=== PATIENT | female | born 1950 | race Caucasian/White ===

== ENCOUNTER 2017-01-21 18:55 | Observation (INO) | payer OTHER ==
[2017-01-21 18:59] VITALS: BMI 27.4
[2017-01-21] MEDS ORDERED: Aspirin 325 mg EC Tablets PO STA (19:56)
--- NOTE | 2017-01-21 19:56 | C.PDOC ---
History Of Present Illness Patient presents to the ED with complaints of chest pain beginning today at approximately lunch time. Patient states pain is non-radiating and denies fever , chills, shortness of breath, weakness, or numbness. Time Seen by Provider: 01/21/17 19:55 Chief Complaint (Nursing): Chest Pain History Per: Patient History/Exam Limitations: no limitations Onset/Duration Of Symptoms: Hrs Current Symptoms Are (Timing): Still Present Severity: Moderate Pain Scale Rating Of: 4 Quality: "Pain" (chest discomfort ) Associated Symptoms: denies: Nausea, Dyspnea, Diaphoresis, Syncope Modifying Factors: None Exacerbating Factors: None Alleviating Factors: None Recent travel outside of the [place]: No Additional History Per: Prior Records Past Medical History Reviewed: Historical Data, Nursing Documentation, Vital Signs Vital Signs: Last Vital Signs Temp 98.7 F 01/21/17 19:30 Pulse 71 01/21/17 19:30 Resp 18 01/21/17 19:30 BP 111/70 01/21/17 19:30 Pulse Ox 99 01/21/17 20:19 - Medical History PMH: Arthritis, HTN, Hypothyroidism, Kidney Stones Family History: States: Unknown Family Hx - Social History Hx Alcohol Use: No Hx Substance Use: No - Immunization History Hx Tetanus Toxoid Vaccination: Yes Hx Influenza Vaccination: Yes Hx Pneumococcal Vaccination: Yes Review Of Systems Constitutional: Negative for: Fever, Chills ENT: Negative for: Throat Pain Cardiovascular: Positive for: Chest Pain Respiratory: Negative for: Cough, Shortness of Breath Gastrointestinal: Negative for: Nausea, Vomiting Genitourinary: Negative for: Dysuria Musculoskeletal: Negative for: Back Pain Skin: Negative for: Rash Neurological: Negative for: Weakness, Numbness Psych: Negative for: Anxiety Physical Exam - Physical Exam Appears: Non-toxic, No Acute Distress Skin: Warm, Diaphoretic Head: Normacephalic Eye(s): bilateral: Normal Inspection, PERRL, EOMI Oral Mucosa: Moist Neck: Trachea Midline, Supple Chest: Symmetrical, No Deformity, Other (non-reproducable chest discomfort ) Cardiovascular: Rhythm Regular Respiratory: No Rales, No Rhonchi, No Wheezing Gastrointestinal/Abdominal: Soft, No Tenderness, No Distention, No Guarding, No Rebound Back: No CVA Tenderness Extremity: No Tenderness Extremity: Bilateral: Atraumatic, Normal Color And Temperature, Normal ROM Pulses: Left Dorsalis Pedis: Normal, Right Dorsalis Pedis: Normal Neurological/Psych: Oriented x3, Normal Speech, Normal Cognition Gait: Steady ED Course And Treatment - Laboratory Results Result Diagrams: 01/21/17 20:01 01/21/17 20:01 ECG: Interpreted By Me, Viewed By Me ECG Rhythm: Sinus Rhythm (90), Nonspecific Changes O2 Sat by Pulse Oximetry: 99 (room air ) Pulse Ox Interpretation: Normal - Radiology CXR: Interpreted by Me, Viewed By Me CXR Interpretation: No: Infiltrates, Fracture, Pnemothorax Disposition Discussed With DrAnthony: Nasir Rosas Comment: accepted the pt on his service and took over the care at 10:31 PM Doctor Will See Patient In The: ED Counseled Patient/Family Regarding: Studies Performed, Diagnosis - Disposition Disposition: HOSPITALIZED Disposition Time: 19:56 Condition: FAIR Forms: [facility] (Ivorian) - POA Present On Arrival: Poor Glycemic Control - Clinical Impression Clinical Impression: Chest pain - Scribe Statement The provider has reviewed the documentation as recorded by the Scribe Alecia Valenzuela All medical record entries made by the Scribe were at my direction and personally dictated by me. I have reviewed the chart and agree that the record accurately reflects my personal performance of the history, physical exam, medical decision making, and the department course for this patient. I have also personally directed, reviewed, and agree with the discharge instructions and disposition. Decision To Admit - Pt Status Changed To: Hospital Disposition Of: Observation - . Bed Request Type: Telemetry Patient Diagnosis: Chest pain, Hyperglycemia
[2017-01-21] MEDS ORDERED: Aspirin 325 mg EC Tablets PO ONE (20:02)
[2017-01-21 20:08] LABS: BASO # 0.1 K/uL (0.0-0.2); BASO % 2.7 % (0.0-2.0); EOS # 0.3 K/uL (0.0-0.7); EOS % 5.1 % (0.0-4.0); HEMATOCRIT 35.1 % (34.0-47.0); LYMPH # 1.2 K/uL (1.0-4.3); MEAN CELL VOLUME 92.1 fL (81.0-99.0); MEAN CORPUSCULAR HEMOGLOBIN 30.8 pg (27.0-31.0); MEAN CORPUSCULAR HGB CONC 33.4 g/dL (33.0-37.0); MEAN PLATELET VOLUME 8.5 fL (7.2-11.7); MONO # 0.4 K/uL (0.0-0.8); MONO % 6.8 % (0.0-10.0); NRBC % 0.2 % (0.0-2.0); WHITE BLOOD COUNT 5.4 K/uL (4.8-10.8)
[2017-01-21 20:18] LABS: CHLORIDE 100 mmol/L (98-107); INR 0.9; POTASSIUM 4.3 mmol/L (3.6-5.2); SODIUM 137 mmol/L (132-148)
[2017-01-21 20:20] LABS: AST/SGOT 24 U/L (14-36); BILIRUBIN,TOTAL 0.5 mg/dL (0.2-1.3); CARBON DIOXIDE 25 mmol/L (22-30); GFR AFRICAN-AMERICAN > 60
[2017-01-21 20:21] LABS: ALB/GLOB RATIO 1.1 (1.0-2.1); ALKALINE PHOSPHATASE 90 U/L (38-126); ALT/SGPT 33 U/L (9-52); BLOOD UREA NITROGEN 14 mg/dL (7-17); CALCIUM 9.9 mg/dl (8.6-10.4); GLUCOSE,RANDOM 222 mg/dL (65-105); TOTAL PROTEIN 7.9 g/dL (6.3-8.3)
[2017-01-21 20:25] LABS: RBC URINE < 1 /hpf (0-3); URINE BILIRUBIN NEGATIVE (NEGATIVE); URINE BLOOD NEGATIVE (NEGATIVE); URINE COLOR Straw (YELLOW); URINE GLUCOSE (UA) 2+ mg/dL (Normal); URINE KETONE NEGATIVE (NEGATIVE); URINE LEUKOCYTE ESTERASE NEG Leu/uL (Negative); URINE PROTEIN NEGATIVE (NEGATIVE); URINE UROBILINOGEN NORMAL mg/dL (0.2-1.0); WBC URINE 2 /hpf (0-5)
[2017-01-21] MEDS ORDERED: Aluminum Hydroxide/Magnesium Hydroxide Susp (30 mL) PO PRN (23:06)
--- NOTE | 2017-01-21 23:18 | CP.PCM.HP ---
<Ashvin GLASGOWMary Ann - Last Filed: 01/21/17 23:37> History of Present Illness - History of Present Illness History of Present Illness: CC: "I have chest pain" Patient is a 66 year old female with PMHx significant for HTN, GERD, and anxiety who presents to the ED with complaint of chest pain. Patient states this pain began while eating lunch today. Patient states she was eating chicken and rice and felt pain with swallowing and pain in epigastric region. Patient states it is difficult to describe the pain but feels like she "has a lot of air inside." Patient states she rushed to eat her food because she was feeling anxious and does not like to take her xanax on an empty stomach. Patient states she took her xanax and it did help her feel better. Patient also complains of frequent belching which she says reproduces the pain. Patient also complains of of left sided chest pain that she describes as a muscle pain which she has felt for the pats 1-2 months and is helped with her salonpas patches. Patient denies chest pressure, nausea, or vomiting. Patient denies diaphoresis, lightheadedness. Patient complains of some dizziness but she states it is because she needs a new eyeglass prescription. Patient also complains of back pain and left shoulder pain but states it is also chronic for 1-2 months and denies relation to the pain that brought her to the ER. Patient states she was concerned about the pain as she has a history of HTN that is controlled with multiple medications. Patient states she checks her blood pressure twice a day at home and takes norvasc 5mg up to twice daily if her pressure is elevated. PMD: Dr. Bel Navarrete PMHx: gastritis (recently finished 1 month nexium), HTN, arthritis, anxiety Meds (verified pill bottles): xanax 0.25mg BID prn, simvastatin 20mg, levothyroxine 100mcg daily, metoprolol succinate 50mg BID, norvasc 5mg BID prn, losartan 100mg PSHx: thyroidectomy, x 2 FamHx: sister with CVA in her 60s Social: lives with sister, denies alcohol, tobacco, drugs Present on Admission - Present on Admission Any Indicators Present on Admission: No Review of Systems - Constitutional Constitutional: absent: Chills, Fever, Weakness - EENT Eyes: Blurred Vision, Requires Corrective Lenses - Cardiovascular Cardiovascular: Chest Pain. absent: Diaphoresis, Dyspnea, Pain Radiating to Arm /Neck/Jaw, Leg Edema, Lightheadedness, Radiating Pain - Respiratory Respiratory: absent: Cough, Dyspnea - Gastrointestinal Gastrointestinal: Belching, Bloating, Dyspepsia. absent: Nausea, Vomiting - Genitourinary Genitourinary: absent: Difficulty Urinating, Dysuria - Musculoskeletal Musculoskeletal: Back Pain - Integumentary Integumentary: absent: Rash, Swelling - Neurological Neurological: absent: Burning Sensations, Confusion, Dizziness, Focal Weakness - Psychiatric Psychiatric: Anxiety Past Patient History - Infectious Disease Hx of Infectious Diseases: None - Past Social History Smoking Status: Never Smoked - CARDIAC Hx Hypertension: Yes - RENAL Hx Kidney Stones: Yes - ENDOCRINE/METABOLIC Hx Hypothyroidism: Yes - MUSCULOSKELETAL/RHEUMATOLOGICAL Hx Arthritis: Yes - PSYCHIATRIC Hx Substance Use: No - SURGICAL HISTORY Other/Comment: c/s - ANESTHESIA Hx Anesthesia: Yes Meds Allergies/Adverse Reactions: Allergies Allergy/AdvReac Type Severity Reaction Status Date / Time No Known Allergies Allergy Verified 01/21/17 18:59 Physical Exam - Constitutional Appears: Non-toxic, No Acute Distress - Head Exam Head Exam: ATRAUMATIC, NORMOCEPHALIC - Eye Exam Eye Exam: EOMI - ENT Exam ENT Exam: Mucous Membranes Moist - Respiratory Exam Respiratory Exam: Clear to Auscultation Bilateral, NORMAL BREATHING PATTERN. absent: Rales, Rhonchi, Wheezes, Respiratory Distress - Cardiovascular Exam Cardiovascular Exam: REGULAR RHYTHM, +S1, +S2. absent: JVD Additional comments: left chest salonpas patch chest pain non-reproducible - GI/Abdominal Exam GI & Abdominal Exam: Normal Bowel Sounds, Soft, Tenderness (epigastric). absent : Firm, Guarding, Rebound, Rigid - Extremities Exam Extremities exam: Positive for: normal inspection. Negative for: pedal edema - Neurological Exam Neurological exam: Alert, Oriented x3 - Psychiatric Exam Psychiatric exam: Normal Affect - Skin Skin Exam: Dry, Warm Results - Vital Signs Recent Vital Signs: Last Vital Signs Temp 98.7 F 01/21/17 19:30 Pulse 71 01/21/17 19:30 Resp 18 01/21/17 19:30 BP 111/70 01/21/17 19:30 Pulse Ox 99 01/21/17 22:33 - Labs Result Diagrams: 01/21/17 20:01 01/21/17 20:01 Labs: Laboratory Results - last 24 hr 01/21/17 01/21/17 01/21/17 20:01 20:01 20:01 WBC 5.4 RBC 3.81 Hgb 11.7 D Hct 35.1 MCV 92.1 MCH 30.8 MCHC 33.4 RDW 13.0 Plt Count 190 MPV 8.5 Neut % (Auto) 62.4 Lymph % (Auto) 23.0 [place] % (Auto) 6.8 Eos % (Auto) 5.1 H Baso % (Auto) 2.7 H Neut # 3.4 Lymph # 1.2 [place] # 0.4 Eos # 0.3 Baso # 0.1 PT 10.2 INR 0.9 APTT 35 H Sodium 137 Potassium 4.3 Chloride 100 Carbon Dioxide 25 Anion Gap 17 BUN 14 Creatinine 0.8 Est GFR ( Amer) > 60 Est GFR (Non-Af Amer) > 60 Random Glucose 222 H Calcium 9.9 Total Bilirubin 0.5 AST 24 ALT 33 Alkaline Phosphatase 90 Troponin I < 0.0120 NT-Pro-B Natriuret Pep 175 Total Protein 7.9 Albumin 4.2 Globulin 3.7 Albumin/Globulin Ratio 1.1 Urine Color Urine Clarity Urine pH Ur Specific [place] Urine Protein Urine Glucose (UA) Urine Ketones Urine Blood Urine Nitrate Urine Bilirubin Urine Urobilinogen Ur Leukocyte Esterase Urine WBC (Auto) Urine RBC (Auto) Ur Squamous Epith Cells 01/21/17 20:19 WBC RBC Hgb Hct MCV MCH MCHC RDW Plt Count MPV Neut % (Auto) Lymph % (Auto) [place] % (Auto) Eos % (Auto) Baso % (Auto) Neut # Lymph # [place] # Eos # Baso # PT INR APTT Sodium Potassium Chloride Carbon Dioxide Anion Gap BUN Creatinine Est GFR ( Amer) Est GFR (Non-Af Amer) Random Glucose Calcium Total Bilirubin AST ALT Alkaline Phosphatase Troponin I NT-Pro-B Natriuret Pep Total Protein Albumin Globulin Albumin/Globulin Ratio Urine Color Straw Urine Clarity Clear Urine pH 5.0 Ur Specific [place] 1.010 Urine Protein Negative Urine Glucose (UA) 2+ H Urine Ketones Negative Urine Blood Negative Urine Nitrate Negative Urine Bilirubin Negative Urine Urobilinogen Normal Ur Leukocyte Esterase Neg Urine WBC (Auto) 2 Urine RBC (Auto) < 1 Ur Squamous Epith Cells < 1 Assessment & Plan - Assessment and Plan (Free Text) Assessment: Chest pain R/O ACS monitor on tele first JYOTI negative, will continue to trend will check repeat EKG chest xray without infiltrates, official report pending pain is localized to epigastric region, will also treat for gastritis Gastric Reflux patient with history reflux, completed one month nexium will start protonix and maalox will check h. pylori Elevated Blood Glucose patient denies history diabetes 2+ glucose in urine also noted will check Hgb A1c HTN continue home meds: losartan 100mg daily, metoprolol succinate 50mg BID will add norvasc 5mg if needed- patient takes for SBP 190 or higher HLD continue equivalent crestor 5mg for home med simvastatin 20mg Hypothyroidism continue home medication levothyroxine 100mcg daily will check thyroid studies Anxiety continue home med xanax 0.25mg BID prn Prophylactic measure protonix lovenox Plan D/W Dr. Rosas <Nasir Rosas - Last Filed: 01/22/17 06:17> Results - Vital Signs Recent Vital Signs: Last Vital Signs Temp 98 F 01/22/17 01:44 Pulse 73 01/22/17 06:00 Resp 18 01/22/17 06:00 BP 123/73 01/22/17 06:00 Pulse Ox 98 01/22/17 06:00 - Labs Result Diagrams: 01/21/17 20:01 01/21/17 20:01 Labs: Laboratory Results - last 24 hr 01/22/17 01:50 Total Creatine Kinase 56 CK-MB (Mass) 0.30 Troponin I, Quant < 0.0120 Assessment & Plan - Date & Time Date: 01/22/17 (I have seen and examined the patient. I agree with the findings and plan of care as documented by Dr. Lock. Patient with chest pain. History of hypertension and hypothyroidism. Continue home meds. Aspirin and Statin. ROMIx3 with EKG. Also with elevated blood sugar. Check hemoglobin A1C. Monitor for acute changes.) Time: 06:16 Attending/Attestation - Attestation I have personally seen and examined this patient.: Yes I have fully participated in the care of the patient.: Yes I have reviewed all pertinent clinical information: Yes
[2017-01-21] MEDS: Metoprolol Succinate 50 mg XL Tab PO SCH (23:19)
[2017-01-21] MEDS ORDERED: Enoxaparin 40 mg Syringe SC SCH (23:30)
[2017-01-21] MEDS: Pantoprazole 40 mg EC Tab PO SCH (23:49)
[2017-01-21] MEDS ORDERED: Pantoprazole 40 mg EC Tab PO ONE (23:52)
[2017-01-21] MEDS ORDERED: Enoxaparin 40 mg Syringe ONE (23:53)
[2017-01-22 05:12] VITALS: RESP 18
[2017-01-22] MEDS ORDERED: Levothyroxine 100 MCG TAB PO SCH (06:30)
[2017-01-22 07:29] VITALS: O2SAT 96
--- NOTE | 2017-01-22 08:07 | RAD ---
PROCEDURE: CHEST RADIOGRAPH, 1 VIEW HISTORY: Chest pain COMPARISON: None available. FINDINGS: LUNGS: The lungs are well inflated and clear. PLEURA: No pneumothorax or pleural fluid seen. CARDIOVASCULAR: Normal. OSSEOUS STRUCTURES: No significant abnormalities. VISUALIZED UPPER ABDOMEN: Normal. OTHER FINDINGS: None. IMPRESSION: No active pulmonary disease.
[2017-01-22 09:34] LABS: BASO # 0.1 K/uL (0.0-0.2); BASO % 1.3 % (0.0-2.0); EOS # 0.3 K/uL (0.0-0.7); EOS % 5.4 % (0.0-4.0); HEMATOCRIT 37.5 % (34.0-47.0); LYMPH # 1.4 K/uL (1.0-4.3); MEAN CELL VOLUME 92.3 fL (81.0-99.0); MEAN CORPUSCULAR HEMOGLOBIN 30.3 pg (27.0-31.0); MEAN CORPUSCULAR HGB CONC 32.9 g/dL (33.0-37.0); MONO # 0.3 K/uL (0.0-0.8); MONO % 5.8 % (0.0-10.0); RED CELL DISTRIBUTION WIDTH 13.1 % (11.5-14.5); WHITE BLOOD COUNT 5.1 K/uL (4.8-10.8)
[2017-01-22 09:45] LABS: CHLORIDE 100 mmol/L (98-107); SODIUM 138 mmol/L (132-148)
[2017-01-22 09:46] LABS: POTASSIUM 4.4 mmol/L (3.6-5.2)
[2017-01-22 09:48] LABS: ALB/GLOB RATIO 1.1 (1.0-2.1); ALKALINE PHOSPHATASE 79 U/L (38-126); ALT/SGPT 33 U/L (9-52); AST/SGOT 27 U/L (14-36); BILIRUBIN,TOTAL 0.7 mg/dL (0.2-1.3); BLOOD UREA NITROGEN 14 mg/dL (7-17); CALCIUM 10.3 mg/dl (8.6-10.4); CARBON DIOXIDE 28 mmol/L (22-30); GFR AFRICAN-AMERICAN > 60; GLUCOSE,RANDOM 139 mg/dL (65-105); TOTAL PROTEIN 8.3 g/dL (6.3-8.3)
[2017-01-22 10:00] LABS: T4 9.29 ug/dL (5.5-11.0)
[2017-01-22] MEDS: Pantoprazole 40 mg EC Tab PO SCH (10:02)
[2017-01-22] MEDS: Metoprolol Succinate 50 mg XL Tab PO SCH (10:02)
[2017-01-22 10:14] LABS: THYROID STIMULATING HORMONE 0.68 mIU/L (0.46-4.68)
[2017-01-22 10:18] VITALS: BP 154/81; TEMP 97.9
--- NOTE | 2017-01-22 12:01 | CP.PCM.PN ---
Objective - Vital Signs/Intake and Output Vital Signs (last 24 hours): Temp Pulse Resp BP Pulse Ox 97.9 F 82 18 154/81 H 96 01/22/17 10:17 01/22/17 10:17 01/22/17 10:17 01/22/17 10:17 01/22/17 10:17 - Medications Medications: Current Medications Al Hydrox/Mg Hydrox/Simethicone (Maalox 30 Ml) 30 ml PO Q6H PRN PRN Reason: Indigestion / Heartburn Alprazolam (Xanax) 0.25 mg PO PRN PRN PRN Reason: Anxiety Stop: 01/28/17 23:08 Aspirin (Aspirin Chewable) 81 mg PO DAILY [facility] Last Admin: 01/22/17 10:02 Dose: 81 mg Enoxaparin Sodium (Lovenox) 40 mg SC Q24H [facility] Last Admin: 01/21/17 23:54 Dose: 40 mg Levothyroxine Sodium (Synthroid) 100 mcg PO DAILY@0630 [facility] Last Admin: 01/22/17 06:04 Dose: 100 mcg Losartan Potassium (Cozaar) 100 mg PO DAILY [facility] Last Admin: 01/22/17 10:02 Dose: 100 mg Metoprolol Succinate (Toprol Xl) 50 mg PO BID [facility] Last Admin: 01/22/17 10:02 Dose: 50 mg Pantoprazole Sodium (Protonix Ec Tab) 40 mg PO DAILY [facility] Last Admin: 01/22/17 10:02 Dose: 40 mg Pneumococcal Polyvalent Vaccine (Pneumovax 23 Vaccine) 0.5 ml IM .ONCE ONE Stop: 01/25/17 14:01 Rosuvastatin Calcium (Crestor) 5 mg PO HS [facility] - Labs Labs: 01/22/17 09:23 01/22/17 09:23 PT 10.2 SECONDS (9.7-12.2) 01/21/17 20:01 INR 0.9 01/21/17 20:01 APTT 35 SECONDS (21-34) H 01/21/17 20:01
[2017-01-22] MEDS ORDERED: Pneumococcal 23-Valent Vaccine IM ONE (13:10)
[2017-01-22 13:11] VITALS: PULSE 88
--- NOTE | 2017-01-22 13:49 | CP.PCM.DIS ---
<Cachorro Fernando - Last Filed: 01/23/17 01:17> Provider - Provider Date of Admission: 01/21/17 22:30 Attending physician: Nasir Rosas MD Primary care physician: PMD: Dr. Centeno Time Spent in preparation of Discharge (in minutes): 40 Diagnosis - Discharge Diagnosis (1) Chest pain Status: Resolved (2) GERD (gastroesophageal reflux disease) Status: Chronic (3) HTN (hypertension) Status: Chronic (4) HLD (hyperlipidemia) Status: Chronic (5) Hypothyroidism Status: Chronic (6) Anxiety Status: Chronic (7) Hyperglycemia Status: Chronic Hospital Course - Lab Results Lab Results: Most Recent Lab Values WBC 5.1 K/uL (4.8-10.8) 01/22/17 09:23 RBC 4.06 Mil/uL (3.80-5.20) 01/22/17 09:23 Hgb 12.3 g/dL (11.0-16.0) 01/22/17 09:23 Hct 37.5 % (34.0-47.0) 01/22/17 09:23 MCV 92.3 fL (81.0-99.0) 01/22/17 09:23 MCH 30.3 pg (27.0-31.0) 01/22/17 09:23 MCHC 32.9 g/dL (33.0-37.0) L 01/22/17 09:23 RDW 13.1 % (11.5-14.5) 01/22/17 09:23 Plt Count 207 K/uL (130-400) 01/22/17 09:23 MPV 8.0 fL (7.2-11.7) 01/22/17 09:23 Neut % (Auto) 59.5 % (50.0-75.0) 01/22/17 09:23 Lymph % (Auto) 28.0 % (20.0-40.0) 01/22/17 09:23 Humphreys % (Auto) 5.8 % (0.0-10.0) 01/22/17 09:23 Eos % (Auto) 5.4 % (0.0-4.0) H 01/22/17 09:23 Baso % (Auto) 1.3 % (0.0-2.0) 01/22/17 09:23 Neut # 3.0 K/uL (1.8-7.0) 01/22/17 09:23 Lymph # 1.4 K/uL (1.0-4.3) 01/22/17 09:23 Humphreys # 0.3 K/uL (0.0-0.8) 01/22/17 09:23 Eos # 0.3 K/uL (0.0-0.7) 01/22/17 09:23 Baso # 0.1 K/uL (0.0-0.2) 01/22/17 09:23 PT 10.2 SECONDS (9.7-12.2) 01/21/17 20:01 INR 0.9 01/21/17 20:01 APTT 35 SECONDS (21-34) H 01/21/17 20:01 Sodium 138 mmol/L (132-148) 01/22/17 09:23 Potassium 4.4 mmol/L (3.6-5.2) 01/22/17 09:23 Chloride 100 mmol/L (98-107) 01/22/17 09:23 Carbon Dioxide 28 mmol/L (22-30) 01/22/17 09:23 Anion Gap 15 (10-20) 01/22/17 09:23 BUN 14 mg/dL (7-17) 01/22/17 09:23 Creatinine 0.8 MG/DL (0.7-1.2) 01/22/17 09:23 Est GFR ( Amer) > 60 01/22/17 09:23 Est GFR (Non-Af Amer) > 60 01/22/17 09:23 Random Glucose 139 mg/dL (65-105) H 01/22/17 09:23 Hemoglobin A1c 6.3 % (4.2-6.5) 01/22/17 09:23 Calcium 10.3 mg/dl (8.6-10.4) 01/22/17 09:23 Total Bilirubin 0.7 mg/dL (0.2-1.3) 01/22/17 09:23 AST 27 U/L (14-36) 01/22/17 09:23 ALT 33 U/L (9-52) 01/22/17 09:23 Alkaline Phosphatase 79 U/L (38-126) 01/22/17 09:23 Total Creatine Kinase 81 U/L (30-135) 01/22/17 09:23 CK-MB (Mass) 0.55 ng/mL (0.0-3.38) 01/22/17 09:23 Troponin I < 0.0120 ng/mL (0.00-0.120) 01/21/17 20:01 Troponin I, Quant < 0.0120 ng/mL (0.00-0.120) 01/22/17 09:23 NT-Pro-B Natriuret Pep 175 pg/mL (0-900) 01/21/17 20:01 Total Protein 8.3 g/dL (6.3-8.3) 01/22/17 09:23 Albumin 4.3 g/dL (3.5-5.0) 01/22/17 09:23 Globulin 4.0 gm/dL (2.2-3.9) H 01/22/17 09:23 Albumin/Globulin Ratio 1.1 (1.0-2.1) 01/22/17 09:23 Thyroxine (T4) 9.29 ug/dL (5.5-11.0) 01/22/17 09:23 TSH 3rd Generation 0.68 mIU/L (0.46-4.68) 01/22/17 09:23 Urine Color Straw (YELLOW) 01/21/17 20:19 Urine Clarity Clear (Clear) 01/21/17 20:19 Urine pH 5.0 (5.0-8.0) 01/21/17 20:19 Ur Specific Lorton 1.010 (1.003-1.030) 01/21/17 20:19 Urine Protein Negative mg/dL (NEGATIVE) 01/21/17 20:19 Urine Glucose (UA) 2+ mg/dL (Normal) H 01/21/17 20:19 Urine Ketones Negative mg/dL (NEGATIVE) 01/21/17 20:19 Urine Blood Negative (NEGATIVE) 01/21/17 20:19 Urine Nitrate Negative (NEGATIVE) 01/21/17 20:19 Urine Bilirubin Negative (NEGATIVE) 01/21/17 20:19 Urine Urobilinogen Normal mg/dL (0.2-1.0) 01/21/17 20:19 Ur Leukocyte Esterase Neg Pinky/uL (Negative) 08/17/17 20:19 Urine WBC (Auto) 2 /hpf (0-5) 01/21/17 20:19 Urine RBC (Auto) < 1 /hpf (0-3) 01/21/17 20:19 Ur Squamous Epith Cells < 1 /hpf (0-5) 01/21/17 20:19 - Hospital Course Hospital Course: 66 year old Lonnie female with past medical history significant for HTN, GERD, and anxiety presents to [facility] ED with complaint of chest pain. Patient states this pain began while eating lunch today. Patient states she was eating chicken and rice and felt pain with swallowing and pain in epigastric region. Patient states it is difficult to describe the pain but feels like she "has a lot of air inside." The pain lasted more than 6 hours, which prompted patient to come to the ED to be evaluated. Patient states she rushed to eat her food because she was feeling anxious and does not like to take her xanax on an empty stomach. Patient states she took her xanax and it did help her feel better. Patient also complains of frequent belching which she says reproduces the pain. Patient also complains of of left sided chest pain that she describes as a muscle pain which she has felt for the pats 1-2 months and is helped with her salonpas patches. Patient states she never had a endoscopy nor colonoscopy done in the past because she does not have insurance. Patient denies chest pressure, nausea, or vomiting. Patient denies diaphoresis , lightheadedness. Patient states she was concerned about the pain as she has a history of HTN that is controlled with multiple medications. Patient states she checks her blood pressure twice a day at home and takes norvasc 5mg up to twice daily if her pressure is elevated. In the ED, patient's EKG showed NSR at 90 bpm and CXR showed no active disease. During her hospital course, patient had three negative troponins. Patient's chest pain resolved next morning. Case was discussed with hospitalist attending and PMD Dr. Navarrete. Patient's presenting symptoms are most likely caused by her anxiety and GERD. Patient was recommended to have an outpatient endoscopy and colonoscopy. Patient will be discharged home with oral Protonix 40mg daily. Above is a summary of patient's hospital course. For detail, please refer to medical records. Treatment plan and discharge instruction were discussed with patient extensively. Patient was given opportunity to ask questions. Patient understood and agreed with treatment plan. Patient is medically stable to be discharge per attending Dr. Pereira. - Date & Time of H&P Date of H&P: 01/21/17 Time of H&P: 23:11 Discharge Exam - Head Exam Head Exam: ATRAUMATIC, NORMOCEPHALIC - Eye Exam Eye Exam: Normal appearance - ENT Exam ENT Exam: Mucous Membranes Moist - Neck Exam Neck exam: Normal Inspection - Respiratory Exam Respiratory Exam: Clear to PA & Lateral, NORMAL BREATHING PATTERN. absent: Respiratory Distress - Cardiovascular Exam Cardiovascular Exam: REGULAR RHYTHM, +S1, +S2 - GI/Abdominal Exam GI & Abdominal Exam: Normal Bowel Sounds, Soft - Extremities Exam Extremities exam: normal capillary refill, normal inspection, pedal pulses present - Neurological Exam Neurological exam: Alert, Oriented x3 - Psychiatric Exam Psychiatric exam: Normal Affect, Normal Mood - Skin Skin Exam: Dry, Normal Color, Warm Discharge Plan - Discharge Medications Prescriptions: Pantoprazole Sodium [Protonix] 40 mg PO DAILY #30 ect - Follow Up Plan Condition: FAIR Disposition: HOME/ ROUTINE Instructions: Pantoprazole (By mouth), Chest Pain (DC), Gastroesophageal Reflux Disease (DC) Additional Instructions: Patient is medically stable to be discharged per attending hospitalist Dr. Pereira Patient will follow up with PMD Dr. Centeno within 1 week of hospital discharge Patient will start to take protonix PO as instructed Patient was instructed to get an outpatient endoscopy and colonscopy as she never had one done Patient was educated on anxiety and stress reducing lifestyle modifications such as exercise daily Go to the nearest ED if symptoms return or worsen Referrals: Bel Navarrete MD [Medical Doctor] - <Shiv Pereira - Last Filed: 01/23/17 16:16> Provider - Provider Date of Admission: 01/21/17 22:30 Attending physician: Nasir Rosas MD Hospital Course - Lab Results Lab Results: Most Recent Lab Values WBC 5.1 K/uL (4.8-10.8) 01/22/17 09:23 RBC 4.06 Mil/uL (3.80-5.20) 01/22/17 09:23 Hgb 12.3 g/dL (11.0-16.0) 01/22/17 09:23 Hct 37.5 % (34.0-47.0) 01/22/17 09:23 MCV 92.3 fL (81.0-99.0) 01/22/17 09:23 MCH 30.3 pg (27.0-31.0) 01/22/17 09: MCHC 32.9 g/dL (33.0-37.0) L 01/22/17 09: RDW 13.1 % (11.5-14.5) 01/22/17 09: Plt Count 207 K/uL (130-400) 01/22/17 09:23 MPV 8.0 fL (7.2-11.7) 01/22/17 09:23 Neut % (Auto) 59.5 % (50.0-75.0) 01/22/17 09: Lymph % (Auto) 28.0 % (20.0-40.0) 01/22/17 09:23 Humphreys % (Auto) 5.8 % (0.0-10.0) 01/22/17 09: Eos % (Auto) 5.4 % (0.0-4.0) H 01/22/17 09:23 Baso % (Auto) 1.3 % (0.0-2.0) 01/22/17 09:23 Neut # 3.0 K/uL (1.8-7.0) 01/22/17 09:23 Lymph # 1.4 K/uL (1.0-4.3) 01/22/17 09:23 Humphreys # 0.3 K/uL (0.0-0.8) 01/22/17 09:23 Eos # 0.3 K/uL (0.0-0.7) 01/22/17 09:23 Baso # 0.1 K/uL (0.0-0.2) 01/22/17 09:23 PT 10.2 SECONDS (9.7-12.2) 01/21/17 20:01 INR 0.9 01/21/17 20:01 APTT 35 SECONDS (21-34) H 01/21/17 20:01 Sodium 138 mmol/L (132-148) 01/22/17 09:23 Potassium 4.4 mmol/L (3.6-5.2) 01/22/17 09:23 Chloride 100 mmol/L (98-107) 01/22/17 09:23 Carbon Dioxide 28 mmol/L (22-30) 01/22/17 09:23 Anion Gap 15 (10-20) 01/22/17 09:23 BUN 14 mg/dL (7-17) 01/22/17 09:23 Creatinine 0.8 MG/DL (0.7-1.2) 01/22/17 09:23 Est GFR ( Amer) > 60 01/22/17 09:23 Est GFR (Non-Af Amer) > 60 01/22/17 09:23 Random Glucose 139 mg/dL (65-105) H 01/22/17 09:23 Hemoglobin A1c 6.3 % (4.2-6.5) 01/22/17 09:23 Calcium 10.3 mg/dl (8.6-10.4) 01/22/17 09:23 Total Bilirubin 0.7 mg/dL (0.2-1.3) 01/22/17 09:23 AST 27 U/L (14-36) 01/22/17 09:23 ALT 33 U/L (9-52) 01/22/17 09:23 Alkaline Phosphatase 79 U/L (38-126) 01/22/17 09:23 Total Creatine Kinase 81 U/L (30-135) 01/22/17 09:23 CK-MB (Mass) 0.55 ng/mL (0.0-3.38) 01/22/17 09:23 Troponin I < 0.0120 ng/mL (0.00-0.120) 01/21/17 20:01 Troponin I, Quant < 0.0120 ng/mL (0.00-0.120) 01/22/17 09:23 NT-Pro-B Natriuret Pep 175 pg/mL (0-900) 01/21/17 20:01 Total Protein 8.3 g/dL (6.3-8.3) 01/22/17 09:23 Albumin 4.3 g/dL (3.5-5.0) 01/22/17 09:23 Globulin 4.0 gm/dL (2.2-3.9) H 01/22/17 09:23 Albumin/Globulin Ratio 1.1 (1.0-2.1) 01/22/17 09:23 Thyroxine (T4) 9.29 ug/dL (5.5-11.0) 01/22/17 09:23 TSH 3rd Generation 0.68 mIU/L (0.46-4.68) 01/22/17 09:23 Urine Color Straw (YELLOW) 01/21/17 20:19 Urine Clarity Clear (Clear) 01/21/17 20:19 Urine pH 5.0 (5.0-8.0) 01/21/17 20:19 Ur Specific Lorton 1.010 (1.003-1.030) 01/21/17 20:19 Urine Protein Negative mg/dL (NEGATIVE) 01/21/17 20:19 Urine Glucose (UA) 2+ mg/dL (Normal) H 01/21/17 20:19 Urine Ketones Negative mg/dL (NEGATIVE) 01/21/17 20:19 Urine Blood Negative (NEGATIVE) 01/21/17 20:19 Urine Nitrate Negative (NEGATIVE) 01/21/17 20:19 Urine Bilirubin Negative (NEGATIVE) 01/21/17 20:19 Urine Urobilinogen Normal mg/dL (0.2-1.0) 01/21/17 20:19 Ur Leukocyte Esterase Neg Pinky/uL (Negative) 01/21/17 20:19 Urine WBC (Auto) 2 /hpf (0-5) 01/21/17 20:19 Urine RBC (Auto) < 1 /hpf (0-3) 01/21/17 20:19 Ur Squamous Epith Cells < 1 /hpf (0-5) 01/21/17 20:19 Stool H. pylori Ag Not detected (Not Detected) 01/22/17 15:10 H. pylori Source Stool 01/22/17 15:10 Attending/Attestation - Attestation I have personally seen and examined this patient.: Yes I have fully participated in the care of the patient.: Yes I have reviewed all pertinent clinical information, including history, physical exam and plan: Yes Notes (Text): 01/23/17 16:15 Patient was seen and examined at bedside with the resident Patient has no complaints of chest pain Cardiac workup is negative. Patient is clear for discharge with follow-up with the primary medical doctor. Patient will follow-up with the e m assembler for an outpatient cardiac stress test I agree with the discharge note by the resident
--- NOTE | 2017-01-24 17:43 | CARD ---
APPROVED REPORT EKG Measurement Heart [id number] RI 160P44 [id number] <Conclusion> Normal sinus rhythm Inferior infarct, age undetermined Abnormal ECG
[2017-01-25] MEDS ORDERED: Pneumococcal 23-Valent Vaccine IM ONE (14:00)
--- NOTE | 2017-01-26 17:51 | CARD ---
APPROVED REPORT EKG Measurement Heart [id number] <Conclusion> Normal sinus rhythm Low voltage QRS Possible Inferior infarct, age undetermined Abnormal ECG
== END 2017-01-22 14:25 | disposition home or self-care (01) ==
LOC: C.ER 18:55 → C.9E 22:30 → C.5T 01-22 07:03
PROVIDERS: ADMIT Family Medicine; ATTEND Family Medicine
DX: R07.89 Other chest pain (principal); R73.9 Hyperglycemia, unspecified; K21.9 Gastro-esophageal reflux disease without esophagitis; I10 Essential (primary) hypertension; F41.9 Anxiety disorder, unspecified; E78.5 Hyperlipidemia, unspecified; E03.9 Hypothyroidism, unspecified; Z23 Encounter for immunization
CPT/HCPCS: 71010; 80053; 81001; 83036; 83880; 84436; 84443; 84484; 85025; 85610; 85730; 87338; 90471; 90732; 93005; 96372; 99285; G0378; J1650

== ENCOUNTER 2017-04-30 10:49 | Emergency (ER) | payer OTHER ==
[2017-04-30 10:50] VITALS: BMI 27.4
[2017-04-30 10:58] VITALS: RESP 18
[2017-04-30] MEDS ORDERED: Sodium Chloride 0.9% 1,000 ML IV ONE (11:32)
[2017-04-30] MEDS ORDERED: Sodium Chloride 0.9% 1,000 ML ONE (11:38)
[2017-04-30 12:02] LABS: BASO # 0.1 K/uL (0.0-0.2); EOS # 0.3 K/uL (0.0-0.7); HEMATOCRIT 36.5 % (34.0-47.0); LYMPH # 1.1 K/uL (1.0-4.3); LYMPH % 12.6 % (20.0-40.0); MEAN CELL VOLUME 93.6 fL (81.0-99.0); MEAN CORPUSCULAR HGB CONC 33.2 g/dL (33.0-37.0); MEAN PLATELET VOLUME 8.7 fL (7.2-11.7); MONO # 0.6 K/uL (0.0-0.8); MONO % 6.6 % (0.0-10.0); RED CELL DISTRIBUTION WIDTH 12.9 % (11.5-14.5)
[2017-04-30 12:09] LABS: RBC URINE 1 /hpf (0-3); URINE BILIRUBIN NEGATIVE (NEGATIVE); URINE BLOOD NEGATIVE (NEGATIVE); URINE COLOR Yellow (YELLOW); URINE GLUCOSE (UA) NORMAL (Normal); URINE KETONE NEGATIVE (NEGATIVE); URINE LEUKOCYTE ESTERASE TRACE Leu/uL (Negative); URINE PROTEIN NEGATIVE (NEGATIVE); URINE UROBILINOGEN NORMAL mg/dL (0.2-1.0); WBC URINE 3 /hpf (0-5)
[2017-04-30 12:15] LABS: ALB/GLOB RATIO 1.2 (1.0-2.1); ALKALINE PHOSPHATASE 84 U/L (38-126); ALT/SGPT 33 U/L (9-52); AST/SGOT 21 U/L (14-36); BILIRUBIN,TOTAL 1.1 mg/dL (0.2-1.3); BLOOD UREA NITROGEN 19 mg/dL (7-17); CALCIUM 9.3 mg/dl (8.6-10.4); CARBON DIOXIDE 24 mmol/L (22-30); CHLORIDE 98 mmol/L (98-107); GFR AFRICAN-AMERICAN > 60; GLUCOSE,RANDOM 104 mg/dL (65-105); SODIUM 135 mmol/L (132-148); TOTAL PROTEIN 8.4 g/dL (6.3-8.3)
--- NOTE | 2017-04-30 12:25 | C.PDOC ---
History Of Present Illness 67 year old female presents to the ED c/o left flank pain that gradually developed over the past 5 days, patient admits she was helping someone and hit her left flank against a railing, pain is worsened with movement. Otherwise, Patient denies CP, SOB, abdominal pain, nausea, vomit, diarrhea, weakness, numbness, saddle anesthesia, incontinence, sensory or vascular deficit to B/L LEs. Not in any apparent distress. Time Seen by Provider: 04/30/17 11:22 Chief Complaint (Nursing): Back Pain History Per: Patient History/Exam Limitations: no limitations Onset/Duration Of Symptoms: Intermittent Episodes Current Symptoms Are (Timing): Still Present Quality Of Discomfort: "Pain" Previous Symptoms: Back Pain Exacerbating Factor(s): Movement Recent travel outside of the [place]: No Additional History Per: Patient Past Medical History Reviewed: Historical Data, Nursing Documentation, Vital Signs Vital Signs: Last Vital Signs Temp 97.9 F 04/30/17 13:01 Pulse 77 04/30/17 13:01 Resp 18 04/30/17 13:01 BP 99/63 L 04/30/17 13:01 Pulse Ox 99 04/30/17 13:09 - Medical History PMH: Arthritis, HTN, Hypothyroidism, Kidney Stones Surgical History: No Surg Hx Family History: States: Unknown Family Hx - Social History Hx Alcohol Use: No Hx Substance Use: No - Immunization History Hx Tetanus Toxoid Vaccination: Yes Hx Influenza Vaccination: Yes Hx Pneumococcal Vaccination: Yes Review Of Systems Constitutional: Negative for: Fever Cardiovascular: Negative for: Chest Pain, Palpitations Respiratory: Negative for: Shortness of Breath Gastrointestinal: Negative for: Nausea, Vomiting, Abdominal Pain Genitourinary: Negative for: Frequency, Incontinence Musculoskeletal: Positive for: Back Pain Neurological: Negative for: Weakness, Numbness Physical Exam - Physical Exam Appears: Non-toxic, No Acute Distress Skin: Normal Color, Warm, Dry, No Rash Head: Normacephalic Eye(s): bilateral: PERRL Oral Mucosa: Moist Neck: Normal ROM, Trachea Midline, Supple Chest: Symmetrical Cardiovascular: Rhythm Regular, No Murmur Respiratory: No Decreased Breath Sounds, No Accessory Muscle Use, No Rales, No Rhonchi, No Wheezing Gastrointestinal/Abdominal: Soft, No Tenderness Back: No CVA Tenderness, No Vertebral Tenderness, Other (Left flank tenderness, left lateral body tenderness) Extremity: Normal ROM, No Deformity, No Swelling Neurological/Psych: Oriented x3, Normal Speech, Normal Cognition, Normal Motor, Normal Sensation ED Course And Treatment - Laboratory Results Result Diagrams: 04/30/17 11:58 04/30/17 11:58 Lab Interpretation: Normal O2 Sat by Pulse Oximetry: 99 (On RA) Pulse Ox Interpretation: Normal - CT Scan/US CT Abdomen/pelvis Other Rad Studies (CT/US): Interpreted By Me, Read By Radiologist, Radiology Report Reviewed CT/US Interpretation: IMPRESSION: No acute findings identified. Numerous too small to characterize hepatic hypodensities; statistically likely cysts or hemangiomas. 3 cm right renal hypodense lesion, favored to represent cysts. Progress Note: Plan: -CT abdo/pelvis ordered. -Blood work, UA ordered. -IV fluids given. -Neurontin 300 mg PO given. -Solumedrol 15 mg IVP given. - Toradol 15 mg PO given. -Valium 5 mg PO given. On re-evaluation, pt reports moderate improvement in pain. pt is afebrile, hemodynamicaly stable. NOn- toxic. Ambulatory in ED with stable gait. PulseOx 100% RA. ENT: no acute findings. neck: Supple, (-) JVD, (-) carotid bruits. Lungs: CTA B/L, BS equal B/L. CVS: (+)S1S2, reg. Abd: benign. BAck: (-) CVA tenderness. Neuorlogicaly intact. Blood work review and appears without acute abnormalities. CT abd/plevis review and appears normal. Pt has clinical findings c/w Left flank pain r/o strain. Pt advised. ref. to f/u with PMD in 2 -3 days for re-eavl. return to ED if any worsening or new changes. Disposition Counseled Patient/Family Regarding: Studies Performed, Diagnosis, Need For Followup, Rx Given - Disposition Referrals: Bel Navarrete MD [Medical Doctor] - Disposition: HOME/ ROUTINE Disposition Time: 13:00 Condition: STABLE Additional Instructions: Take medication as prescribed Light duty to Left flank pain for 1-2 weeks, avoid heavy lifting, bending forwards, etc. Follow up with PMD in 2-3 days for re-evaluation. Return to ED if any worsening or new changes, Prescriptions: Methocarbamol [Robaxin] 500 mg PO TID #14 tab Prednisone [Deltasone] 40 mg PO DAILY #6 tablet traMADol [Ultram] 50 mg PO TID #7 tab Instructions: Muscle Strain (ED), Flank Pain (ED) Forms: [facility] (Ukrainian) - Clinical Impression Clinical Impression: Flank pain - PA / [facility] / Resident Statement MD/DO has reviewed & agrees with the documentation as recorded. - Scribe Statement The provider has reviewed the documentation as recorded by the Scribe Easton Collier All medical record entries made by the Scribe were at my direction and personally dictated by me. I have reviewed the chart and agree that the record accurately reflects my personal performance of the history, physical exam, medical decision making, and the department course for this patient. I have also personally directed, reviewed, and agree with the discharge instructions and disposition.
--- NOTE | 2017-04-30 12:59 | CT ---
PROCEDURE: CT Abdomen and Pelvis without Oral or IV contrast. HISTORY: Left flank pain, injury? COMPARISON: None available. TECHNIQUE: Contiguous axial images of the abdomen and pelvis. No oral or IV contrast administered. Coronal and Sagittal reformats generated. Radiation dose: Total exam DLP = 495.82 mGy-cm. This CT exam was performed using one or more of the following dose reduction techniques: Automated exposure control, adjustment of the mA and/or kV according to patient size, and/or use of iterative reconstruction technique. FINDINGS: There is limited evaluation of the solid organs without the administration of IV contrast. LOWER THORAX: No visible consolidation, pleural effusion, or pneumothorax. LIVER: Numerous too small to characterize hepatic hypodensities ; statistically likely cysts or hemangiomas. GALLBLADDER AND BILE DUCTS: Contracted gallbladder. PANCREAS: Unremarkable unenhanced appearance. SPLEEN: Unremarkable unenhanced appearance. ADRENALS: Unremarkable unenhanced appearance. KIDNEYS AND URETERS: No hydronephrosis or obstructing renal calculus. 3 cm right renal hypodense lesion measures approximately 4 HU consistent with a cyst. BLADDER: Under distention of the urinary bladder limits evaluation. REPRODUCTIVE: Uterus is present. APPENDIX: The appendix is not identified. No secondary signs of acute appendicitis identified. BOWEL: The stomach is nondistended. Lack of oral contrast limits evaluation for bowel pathology. The bowel loops appear within normal limits of caliber without evidence of intestinal obstruction. PERITONEUM: No significant free fluid. No definite free air. LYMPH NODES: No bulky lymphadenopathy identified. VASCULATURE: No aortic aneurysm. BONES: Scoliosis. Osseous demineralization. Degenerative changes. OTHER FINDINGS: None. IMPRESSION: No acute findings identified. Numerous too small to characterize hepatic hypodensities; statistically likely cysts or hemangiomas. 3 cm right renal hypodense lesion, favored to represent cysts. Additional incidental findings as above.
[2017-04-30 13:02] VITALS: BP 99/63; PULSE 77; TEMP 97.9
[2017-04-30 13:07] VITALS: O2SAT 99
== END 2017-04-30 13:22 | disposition home or self-care (01) ==
LOC: C.ER 10:49
DX: R10.9 Unspecified abdominal pain (principal)
CPT/HCPCS: 74176; 80053; 81001; 85025; 96361; 96374; 96375; 99284; J1885; J2930; J7040